=== PATIENT | male | born 1995 | race Caucasian/White ===

== ENCOUNTER → 2018-08-30 | Outpatient (CLI) | payer BC ==
--- NOTE | 2018-08-30 17:18 | RADIOLOGY IMAGING REPORT ---
FACILITY: [facility] PATIENT NAME: Andrew Ding : 1995 MR: [id number] V: [id number] EXAM DATE: [id number] ORDERING PHYSICIAN: SRIDEVI GRANT TECHNOLOGIST: Location: [facility] Patient: Andrew Ding : 1995 Visit/Account:[id number] Date of Sevice: 08/30/2018 Exam type: CHEST PA LAT History: Positive TB skin test I GRA negative Comparison: None. Findings: The lungs are free of acute effusions, infiltrates or edema. There is no evidence of cavitary lesion s. Cardiac silhouette is normal in size. The visualized bones are unremarkable for age. IMPRESSION: 1. No acute cardiac primary process is seen. Specifically no chest radiographic evidence of active tuberculosis Report Dictated By: Starr Oliviera MD at 08/30/2018 5:01 PM Report E-Signed By: Starr Oliveira MD at 08/30/2018 5:14 PM WSN:[email or web address]
== END ==
LOC: RAD 16:06
PROVIDERS: ATTEND Nurse Practitioner Family
DX: R76.11 Nonspecific reaction to tuberculin skin test without active tuberculosis (principal)
CPT/HCPCS: 71046